=== PATIENT | female | born 1985 | race African-American/Black ===

== ENCOUNTER 2024-12-11 15:15 | Emergency (ER) | payer BC ==
[~2024-12-11] VITALS: Ht 157.5 cm; Wt 78.5 kg
[2024-12-11] MEDS ORDERED: IBUPROFEN600 MG PO (15:36)
[2024-12-11] MEDS ORDERED: NYSTATIN15 G2 TOP (15:43)
[2024-12-11] MEDS ORDERED: LOTRIMIN AF150 GM TOP (15:47)
[2024-12-11 16:54] VITALS: PULSE 61; RESP 16; TEMP 98.3; O2SAT 98
== END 2024-12-11 16:54 | disposition home or self-care (01) ==
LOC: FSED 15:21
DX: S93.504A Unspecified sprain of right lesser toe(s), initial encounter (principal); X58.XXXA Exposure to other specified factors, initial encounter; B35.3 Tinea pedis; M19.071 Primary osteoarthritis, right ankle and foot
CPT/HCPCS: 99283